=== PATIENT | female | born 1985 | race Two or more races ===

== ENCOUNTER 2024-12-17 20:35 | Emergency (ER) | payer OTHER ==
[~2024-12-17] VITALS: Ht 157.5 cm; Wt 66.1 kg
--- NOTE | 2024-12-17 20:59 | ED.PDOC ---
GI ASSESSMENT HPI Comments HPI: 38-year-old female who came to the ER for abdominal pains. Patient has been experiencing intermittent episodes of abdominal pain for the past 5 years usually worse after meals (tortilla). Never sought consult for it. Since yesterday, patient has been experiencing epigastric abdominal pain, intermittent , resolving spontaneously, with nausea and 1 episode of vomiting. She does have a history of kidney stones and gallstones. Initial Vitals BP:143/102 HR:74 RR:20 O2:97% Temp:98.1 F Past Medical History: Gallstones, kidney stones Past Surgical History: , breast augmentation SRIVASTAVA: HPI: Poor Historian. REVIEW OF SYSTEMS: CONSTITUTIONAL: Denies acute: fever, diaphoresis, chills, generalized weakness. HEAD: Denies acute: headache, photophobia Eyes: Denies acute: Double vision, vision loss, eye pain, eye discharge. EARS: Denies acute: tinnitus, hearing loss, ear discharge, ear pain, THROAT: Denies acute: sore throat, swelling, difficulty swallowing , pain with swallowing, change in voice. NECK: Denies acute: neck pain, neck swelling, stiff neck. HEART: Denies acute : chest pain, palpitations, LUNGS: Denies acute: SOB, wheezing, cough, hemoptysis ABDOMEN: Denies acute: diarrhea, melena , hematemesis, hematochezia SKIN: Denies acute: rash, redness, lesions, itchiness. EXTREMITIES: Denies acute: calf pain, numbness, tingling, weakness, denies pain in extremity. Denies acute: Low back pain. Neuro: Denies acute: focal neurological deficit, motor or sensory focal neurological deficit, tremors, seizure like activity, confusion, dizziness, change in mental status, loss of bowel or bladder function, cauda equina like symptoms. : Denies acute: dysuria, hematuria, flank pain, increase in urinary frequency. PSYCH: Denies acute: hallucination, suicidal ideation, homicidal ideation. FEMALE: Denies acute: abnormal vaginal bleeding, foul odor, unusual discharge. Currently on her menstrual cycle PHYSICAL EXAM: General: -----mild---acute distress, awake and alert. Head: normocephalic, atraumatic. Neck: supple, trachea is midline, no swelling. Throat: Normal phonation. Eyes:, no erythema, no purulent discharge, no proptosis, no icterus. Heart: regular rate, regular rhythm, no significant murmur appreciated. Lungs: no apparent respiratory distress, Able to speak in full sentences. No wheezing, no rhonchi, no crackles. No stridors Clear to auscultation bilaterally. Abdomen: Epigastric tender to palpation, non distended, soft, no guarding, no rebound, + bowel sounds. Neuro: Awake, Alert, oriented to name, self, situation, follows commands GCS=15. Speech is normal. Skin: no petechia, no purpura, no cyanosis, non-pale, not jaundice. Lower extremities: --no - Pitting edema no deformity, no focal swelling, no calf TTP. Makes eye contact. moves all four extremities. Face: no apparent facial droop. Ambulating in the ED independently. ED COURSE: DISCLAIMER: This medical document was created using an electronic medical record system with voice recognition software and computerized dictation system. Although this document has been carefully reviewed, there might still be some phonetic and typographical errors. Occasional wrong-word or "sound-alike" substitutions may have occurred due to the inherent limitations of voice recognition software. These areas are purely typographical due to imperfections of the software programs and do not reflect any compromise in the patient's medical care. Please read the chart carefully and recognize, using context, where these substitutions have occurred. Chief Complaint: Abdominal Pain Time Seen by MD: 20:58 Reviewed Notes: Nurses Notes, Allergies Allergies: Coded Allergies: Amoxicillin (Verified Allergy, Unknown, 12/17/24) Information Source: Patient Mode of Arrival: Ambulatory Past Medical History PAST MEDICAL HISTORY: Gallstones, Kidney Stones Surgical History: Surgical History (Other): Breast augmentation RECORDING ENGINEER History: Denies all RECORDING ENGINEER Hx Family History Family History: Reviewed,noncontributory to illness Social History Smoker: Non-Smoker Alcohol: Denies ETOH Use Drugs: Denies Drug Use Lives In: Home EKG EKG : Pulse Rate (adult): 58 Cardiac Rhythm: NSR Was a procedure done? Was a procedure done?: No GI differential Dx Differential Diagnosis: Cholecystitis, Diverticular disease, Gastritis/PUD, Gastroenteritis, Hepatitis, Pancreatitis, UTI, Urolithiasis, Other (DDX include Diverticulitis, colitis, gastroenteritis, acute abdomen, SBO, enteritis, constipation, volvulus, appendicitis, Gallbladder disease, choledocolithiasis, ascending cholangitis, pancreatitis, intraAbdominal mass/neoplasm, hepatitis, UTI, pylonephritis, kidney stone, aneurysm, dissection, Inflammatory bowel disease, gastroparesis, ischemic bowel,,,,,,ovarian torsion, ovarian cyst/mass, tubo-ovarian abscess, , ectopic , PID, STD.) X-Ray, Labs, Meds, VS Vital Signs Date Time Temp Pulse Resp B/P (MAP) Pulse Ox O2 Delivery O2 Flow Rate FiO2 12/17/24 21:54 97.6 70 18 141/81 (101) 98 97.6 12/17/24 21:54 70 18 98 Room Air* 0 21 12/17/24 21:33 58 12/17/24 21:30 58 12/17/24 20:37 98.1 74 20 143/112 97 98.1 Lab Test 12/17/24 20:58 12/17/24 20:52 Range/Units White Blood Count 9.3 4.4-10.8 10^3/uL Red Blood Count 4.77 4.0-5.20 10^6/uL Hemoglobin 14.6 12.2-16.2 g/dL Hematocrit 43.0 36.0-46.0 % Mean Corpuscular Volume 90.1 80.0-100.0 fL Mean Corpuscular Hemoglobin 30.5 28.0-32.0 pg Mean Corpuscular Hemoglobin Concent 33.9 32.0-36.0 g/dL Red Cell Distribution Width 13.7 11.8-14.3 % Platelet Count 279 140-450 10^3/uL Mean Platelet Volume 7.9 6.9-10.8 fL Neutrophils (%) (Auto) 56.2 37.0-80.0 % Lymphocytes (%) (Auto) 35.2 10.0-50.0 % Monocytes (%) (Auto) 6.7 0.0-12.0 % Eosinophils (%) (Auto) 1.8 0.0-7.0 % Basophils (%) (Auto) 0.1 0.0-2.0 % Neutrophils # (Auto) 5.2 1.6-8.6 10 ^3/uL Lymphocytes # (Auto) 3.3 0.4-5.4 10 ^3/uL Monocytes # (Auto) 0.6 0-1.3 10 ^3/uL Eosinophils # (Auto) 0.2 0-0.8 10 ^3/uL Basophils # (Auto) 0 0-0.2 10 ^3/uL Nucleated Red Blood Cells 0.1 % Sodium Level 139 136-145 mmol/L Potassium Level 3.5 3.5-5.1 mmol/L Chloride Level 102 98-107 mmol/L Carbon Dioxide Level 27 20-31 mmol/L Anion Gap 10 5-15 Blood Urea Nitrogen 9 9-23 mg/dL Creatinine 0.75 0.550-1.02 mg/dL Glomerular Filtration Rate Calc 103 >90 mL/min BUN/Creatinine Ratio 12.0 10.0-20.0 Serum Glucose 92 74-106 mg/dL Lactic Acid Level 1.7 0.4-2.0 mmol/L Calcium Level 9.5 8.7-10.4 mg/dL Total Bilirubin 0.7 0.2-1.0 mg/dL Aspartate Amino Transferase (AST) 17 13-40 U/L Alanine Aminotransferase (ALT) 14 7-40 U/L Alkaline Phosphatase 54 46-116 U/L Troponin I High Sensitivity 4 </=34 ng/L Total Protein 8.0 5.7-8.2 g/dL Albumin 4.7 3.2-4.8 g/dL Lipase 58 H 12-53 U/L Urine Color Light-yellow Yellow Urine Clarity Clear Clear Urine pH 6.5 5.0-9.0 Urine Specific [place] 1.017 1.001-1.035 Urine Protein Negative Negative Urine Ketones Negative Negative Urine Blood 2+ H Negative /uL Urine Nitrite Negative Negative Urine Bilirubin Negative Negative Urine Urobilinogen Normal Negative mg/dL Urine Leukocyte Esterase Negative Negative /uL Urine RBC 3 0 - 4 /hpf Urine Microscopic WBC 2 0-5 /HPF Urine Squamous Epithelial Cells Few <5 /hpf Urine Amorphous Crystals Few None Seen /hpf Urine Bacteria Few H None Seen /hpf Urine Mucus Few None Seen Urine Sperm Present None Seen /hpf Urine Glucose Normal Normal mg/dL Current Medications Medications (Trade) Dose Ordered Sig/Ana Lilia Route Start Time Stop Time Status Last Admin Sucralfate (Carafate Tab) 1 gm ONCE ONCE PO 10/25/25 21:00 12/17/24 21:01 DC 12/17/24 22:06 Pantoprazole Sodium (Protonix Tablet) 40 mg ONCE ONCE PO 12/17/24 21:00 12/17/24 21:01 DC 12/17/24 22:05 Lidocaine HCl (Xylocaine 2% Viscous) 10 ml ONCE ONCE PO 12/17/24 21:00 12/17/24 21:01 DC 12/17/24 22:07 [place] [address] Ph: [phone] DIAGNOSTIC IMAGING Diagnostic Imaging Report : [id number] Signed PATIENT: JEANNE OROZCO ACCT: [id number] UNIT: [id number] : 1985 LOC: ER ROOM / BED: / AGE / SEX: 38 / F ADM STATUS: REG ER SERVICE 51 ORDERING PHYSICIAN: DELANO NUÑEZ DO PROCEDURE(s): ABDL - ABDOMEN LIMITED REASON: epig pain ORDER NUMBER(s): [id number], ACCESSION NUMBER(s): [id number] EXAM: US ABDOMEN LIMITED HISTORY: epig pain COMPARISON: None TECHNIQUE: Multiple longitudinal and transverse sonographic images of the abdomen were obtained. Doppler was applied as indicated. FINDINGS: [PANCREAS]: The visualized portions of the pancreas are unremarkable. [AORTA]: Normal [LIVER]: 14.1 cm. normal echogenicity and echotexture. There is no focal hepatic mass lesion detected. Cystic structure seen in the right hepatic lobe adjacent to the gallbladder measuring 1 cm. Likely benign. [GALLBLADDER]: Gallbladder wall measures 0.2 cm. Multiple shadowing cholelithiasis compatible with wall echo shadow sign. Largest stone measures up to 3 cm. There is no sonographic Bailey sign. [BILIARY TREE]: Common bile duct measures 0.5 cm in diameter. no intrahepatic biliary ductal dilatation. [ASCITES]: No free fluid is demonstrated. [VESSELS]: The main portal vein is patent on color Doppler evaluation. The inferior vena cava is patent on color Doppler evaluation. [RIGHT KIDNEY]: 10.3 cm. normal cortical echogenicity and normal contour. No hydronephrosis. IMPRESSION: 1. Cholelithiasis with wall echo shadow sign. 2. Cystic structure in the right hepatic lobe adjacent to the gallbladder measuring 1 cm likely anechoic cyst ATED BY: SHAQ GARCIA MD DICTATED DATE/TIME: 12/17/242127 SIGNED BY: SHAQ GARCIA MD SIGNED DATE/TIME: 12/17/242127 CC: Time of 1ST Reevaluation: 20:59 Reevaluation 1ST: Unchanged Time of 2ND Reevaluation: 23:11 Reevaluation 2ND: Resolved Patient Education/Counseling: Diagnosis, Treatment Family Education/Counseling: Diagnosis, Treatment Comments MDM: patient presented with the above HPI.--abdominal pain----workup was initiated. patient was found with the above mentioned diagnosis. the following medications were ordered: please refer to order lists of meds and tests obtained by myself Dr. Nuñez. Patient ED course and VS have been stabilized. Patient has been reassessed in the ED and remained in a stable condition. Pertinent incidental findings were discussed with the patient and/or family. Patient/family voices understanding and is agreeable with plan. Patient has been observed in the ED adequate length of time to insure improv ement/stability. Escalation of care considered: Consideration of escalation to observation or admission Patient was DISCHARGED home in a stable condition. All the reports of any imaging studies that were ordered by myself were reviewed by myself. SEPSIS Sepsis Screen Date sepsis recognized/suspect: Dec 17, 2024 Time Sepsis recognized/suspect: 2040 Recent Procedure: No On Antibiotic Therapy: No Respiratory Rate >20: No Heart Rate >90: No Temp<36 C (96.8 F) or >38.3 C: No SBP <90 or MAP <65 mmHG: No New Acute Mental Status Change: No Is the patient on CPAP, BIPAP,: No Physician Orders Professor Of Biostatistics (12/17/24 ) Electrocardigram (12/17/24 20:52) Abdomen Limited (12/17/24 20:52) Vital Signs Date Time Temp Pulse Resp B/P (MAP) Pulse Ox O2 Delivery O2 Flow Rate FiO2 12/17/24 21:54 97.6 70 18 141/81 (101) 98 97.6 12/17/24 21:54 70 18 98 Room Air* 0 21 12/17/24 21:33 58 12/17/24 21:30 58 12/17/24 20:37 98.1 74 20 143/112 97 98.1 Laboratory Tests Test 12/17/24 20:58 Lactic Acid Level 1.7 mmol/L (0.4-2.0) White Blood Count 9.3 10^3/uL (4.4-10.8) Medications Medications Dose Ordered Sig/Ana Lilia Route Start Time Stop Time Status Last Admin Dose Admin Lidocaine HCl 10 ml ONCE ONCE PO 12/17/24 21:00 12/17/24 21:01 DC 12/17/24 22:07 Pantoprazole Sodium 40 mg ONCE ONCE PO 12/17/24 21:00 12/17/24 21:01 DC 12/17/24 22:05 Sucralfate 1 gm ONCE ONCE PO 12/17/24 21:00 12/17/24 21:01 DC 12/17/24 22:06 Departure 1 Departure Time of Disposition: 21:07 Impression: Primary Impression: Epigastric pain Additional Impression: Cholelithiasis Disposition: HOME / SELF CARE / HOMELESS Condition: Stable Additional Instructions: Additional instructions: Please read all instructions provided in this packet carefully. You MUST follow-up with your primary care/family doctor in 1 to 2 days. If you are unable to see your primary care/family doctor, please return to our emergency room for re-assessment and re-evaluation in 1 to 2 days. Return to the emergency room here in our facility or to the nearest ER [facility] if your symptoms change or worsen. CONSULTATIONS: you MUST Follow-up for consultation as soon as possible with: -gastroenterology in 1-2 days. Please call for appointment You MUST call the consultants office yourself to make an appointment. You may need to arrange that through your insurance and/or your primary/family doctor. If you are unable to see the solar energy consultant and designer in 1 to 2 days, you must return to our emergency room (or any other ER of your choice) for re-assessment and re- evaluation. Adequate fluid hydration. Although you have been discharged from the Emergency Department, this does not mean that you have a "clean bill of health". No definitive diagnosis for your symptoms has been made today. It is possible that you are in the process of developing a serious illness. This is why you must return to the ED without fail if any new or worsening symptoms develop. Avoid fatty greasy spicy food. Avoid caffeinated products. Avoid NSAIDs. Below is a copy of your radiological report for follow up: [address] [address] Ph: [phone] DIAGNOSTIC IMAGING Diagnostic Imaging Report : [id number] Signed PATIENT: JEANNE OROZCO ACCT: [id number] UNIT: [id number] : 1985 LOC: ER ROOM / BED: / AGE / SEX: 38 / F ADM STATUS: REG ER SERVICE 51 ORDERING PHYSICIAN: DELANO NUÑEZ DO PROCEDURE(s): ABDL - ABDOMEN LIMITED REASON: epig pain ORDER NUMBER(s): [id number], ACCESSION NUMBER(s): [id number] EXAM: US ABDOMEN LIMITED HISTORY: epig pain COMPARISON: None TECHNIQUE: Multiple longitudinal and transverse sonographic images of the abdomen were obtained. Doppler was applied as indicated. FINDINGS: [PANCREAS]: The visualized portions of the pancreas are unremarkable. [AORTA]: Normal [LIVER]: 14.1 cm. normal echogenicity and echotexture. There is no focal hepatic mass lesion detected. Cystic structure seen in the right hepatic lobe adjacent to the gallbladder measuring 1 cm. Likely benign. [GALLBLADDER]: Gallbladder wall measures 0.2 cm. Multiple shadowing cholelithiasis compatible with wall echo shadow sign. Largest stone measures up to 3 cm. There is no sonographic Bailey sign. [BILIARY TREE]: Common bile duct measures 0.5 cm in diameter. no intrahepatic biliary ductal dilatation. [ASCITES]: No free fluid is demonstrated. [VESSELS]: The main portal vein is patent on color Doppler evaluation. The inferior vena cava is patent on color Doppler evaluation. [RIGHT KIDNEY]: 10.3 cm. normal cortical echogenicity and normal contour. No hydronephrosis. IMPRESSION: 1. Cholelithiasis with wall echo shadow sign. 2. Cystic structure in the right hepatic lobe adjacent to the gallbladder measuring 1 cm likely anechoic cyst ATED BY: SHAQ GARCIA MD DICTATED DATE/TIME: 12/17/242127 SIGNED BY: SHAQ GARCIA MD SIGNED DATE/TIME: 12/17/242127 CC: Discharged With: Self Critical Care Note Critical Care Time?: No Stability Stability form required: No I personally scribed for DELANO NUÑEZ DO ([email or web address]) on 12/17/24 at 20:59. Electronically submitted by Efrain Hayes ([facility]). I personally scribed for DELANO NUÑEZ DO ([email or web address]) on 12/17/24 at 21:33. Electronically submitted by Efrain Hayes ([facility]). I personally scribed for DELANO NUÑEZ DO ([email or web address]) on 12/17/24 at 21:34. Electronically submitted by Efrain Hayes ([facility]). I personally scribed for DELANO NUÑEZ DO ([email or web address]) on 12/17/24 at 22:16. Electronically submitted by Efrain Hayes ([facility]). DELANO NUÑEZ DO Dec 17, 2024 20:59
[2024-12-17 21:15] LABS: Hematocrit 43.0 % (36.0-46.0); Hemoglobin 14.6 g/dL (12.2-16.2); Mean Corpuscular Hemoglobin 30.5 pg (28.0-32.0); Mean Corpuscular Volume 90.1 fL (80.0-100.0); Nucleated Red Blood Cells % 0.1 %
[2024-12-17 21:26] LABS: Alanine Aminotransferase 14 U/L (7-40); Alkaline Phosphatase 54 U/L (46-116); Calcium 9.5 mg/dL (8.7-10.4); Carbon Dioxide 27 mmol/L (20-31); Chloride 102 mmol/L (98-107); Glucose 92 mg/dL (74-106); Potassium 3.5 mmol/L (3.5-5.1)
[2024-12-17 21:27] LABS: Albumin 4.7 g/dL (3.2-4.8); Anion Gap 10 (5-15); BUN/Creatinine Ratio 12.0 (10.0-20.0); Bilirubin, Total 0.7 mg/dL (0.2-1.0); Sodium 139 mmol/L (136-145); Total Protein 8.0 g/dL (5.7-8.2)
--- NOTE | 2024-12-17 21:30 | DVH ---
EXAM: US ABDOMEN LIMITED HISTORY: epig pain COMPARISON: None TECHNIQUE: Multiple longitudinal and transverse sonographic images of the abdomen were obtained. Dopp ler was applied as indicated. FINDINGS: [PANCREAS]: The visualized portions of the pancreas are unremarkable. [AORTA]: Normal [LIVER]: 14.1 cm. normal echogenicity and echotexture. There is no focal hepatic mass lesion detected . Cystic structure seen in the right hepatic lobe adjacent to the gallbladder measuring 1 cm. Likely benign. [GALLBLADDER]: Gallbladder wall measures 0.2 cm. Multiple shadowing cholelithiasis compatible with wa ll echo shadow sign. Largest stone measures up to 3 cm. There is no sonographic Bailey sign. [BILIARY TREE]: Common bile duct measures 0.5 cm in diameter. no intrahepatic biliary ductal dilatati on. [ASCITES]: No free fluid is demonstrated. [VESSELS]: The main portal vein is patent on color Doppler evaluation. The inferior vena cava is ring nt on color Doppler evaluation. [RIGHT KIDNEY]: 10.3 cm. normal cortical echogenicity and normal contour. No hydronephrosis. IMPRESSION: 1. Cholelithiasis with wall echo shadow sign. 2. Cystic structure in the right hepatic lobe adjacent to the gallbladder measuring 1 cm likely anech oic cyst
[2024-12-17 21:32] LABS: Blood Urea Nitrogen 9 mg/dL (9-23); Lipase 58 U/L (12-53)
[2024-12-17 21:33] LABS: Urine Amorphous Crystal FEW /hpf (None Seen); Urine Protein, UAD Negative (Negative)
[2024-12-17 21:54] VITALS: BP 141/81; PULSE 70; RESP 18; TEMP 97.6; O2SAT 98
[2024-12-17] MEDS: PANTOPRAZOLE 40 MG TAB PO ONE (22:05)
[2024-12-17] MEDS: SUCRALFATE 1 GM TAB PO ONE (22:06)
[2024-12-17] MEDS: LIDOCAINE VISCOUS 2% 15ML UD PO ONE (22:07)
--- NOTE | 2024-12-20 07:40 | ECG ---
[facility] Test Date: 2024-12-17 Test Time: 21:30:37 Pat Name: JEANNE RANGEL Department: Room: Gender: F Last Picker: : [phone] Requested By: DELANO NUÑEZ Order Number: [id number] Reading MD: Measurements Intervals [place] Rate: 58 P: 74 KS: 160 QRS: 60 QRSD: 84 T: 60 QT: 407 QTc: 400 Interpretive Statements Sinus rhythm Low voltage, precordial leads Please click the below link to view image of tracing.
== END 2024-12-17 23:20 | disposition home or self-care (01) ==
LOC: ER 20:35
DX: R10.13 Epigastric pain (principal); K80.20 Calculus of gallbladder without cholecystitis without obstruction; Z88.0 Allergy status to penicillin; Z79.899 Other long term (current) drug therapy
CPT/HCPCS: 36415; 76705; 80053; 81001; 83605; 83690; 84484; 85025; 93005